=== PATIENT | male | born 2000 | race Caucasian/White ===

== ENCOUNTER 2023-04-30 20:06 | Emergency (ER) | payer OTHER, SELFPAY ==
[2023-04-30 20:13] VITALS: BP 118/68; PULSE 81; RESP 16; TEMP 37.2; O2SAT 98
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
[2023-04-30] MEDS: Ketorolac 15 MG/ML VIAL IM (20:42)
--- NOTE | 2023-04-30 21:38 | DI.VRAD_ITS ---
PROCEDURE INFORMATION: Exam: XR Right Shoulder Exam date and time: 04/30/2023 8:55 PM Age: 23 years old Clinical indication: Injury or trauma; Fall; Blunt trauma (contusions or hematomas); Shoulder; Right TECHNIQUE: Imaging protocol: Radiologic exam of the right shoulder. Views: 2 or more views. COMPARISON: No relevant prior studies available. FINDINGS: Bones/joints: There is some flattening and sclerosis to the lateral aspect of the humeral head which could represent an old Hill-Sachs deformity. However, clinical correlation with concern for acute injury in this region is recommended. No dislocation. There is a fracture of the shaft of the right clavicle with associated bony overlap and soft tissue swelling. On series 4, some curvilinear densities are seen adjacent to the distal/lateral clavicle, concerning for bony fragments. Soft tissues: See above. No unusual soft tissue calcifications. IMPRESSION: 1. Fracture of the shaft of the right clavicle as described above. 2. There is some flattening and sclerosis to the lateral aspect of the humeral head which could represent an old Hill-Sachs deformity. However, clinical correlation with concern for acute injury in this region is recommended. Other findings/details as above. If further characterization is clinically indicated, a CT scan could be considered. Dictated and Authenticated by: Ania Dozier MD. Ordering:FREDA Romero MD
--- NOTE | 2023-04-30 21:42 | DI.VRAD_ITS ---
PROCEDURE INFORMATION: Exam: XR Right Clavicle, Complete Exam date and time: 04/30/2023 8:57 PM Age: 23 years old Clinical indication: Injury or trauma; Fall; Blunt trauma (contusions or hematomas); Shoulder; Right; Injury date: Clavicle TECHNIQUE: Imaging protocol: Radiologic exam of the right clavicle. Complete exam. Views: Any number of views. COMPARISON: CR XR SHOULDER RT COMPLETE 2+V 04/30/2023 8:55 PM FINDINGS: Bones/joints: There is a fracture of the shaft of the right clavicle with associated displacement and bony overlap. On series 1, the inferior aspect of the lateral right clavicle is inferior to the inferior aspect of the acromion. An AC joint injury is not excluded. Soft tissues: On series 2, linear lucencies are identified in the right supraclavicular soft tissues. These may represent prominent fat stripes but should be correlated with concern for soft tissue gas, which could indicate an open fracture or serious soft tissue infection. Clinical correlation recommended. IMPRESSION: 1. Right clavicular fracture as described. It should be noted that the inferior aspect of the lateral right clavicle is inferior to the inferior aspect of the acromion. An AC joint injury is not excluded. 2. Linear lucencies in the right supraclavicular soft tissues. These may represent prominent fat stripes but should be correlated with any concern for soft tissue gas, which could indicate an open fracture or series soft tissue infection. Clinical correlation is recommended. Other findings/details as above. If indicated, a CT scan could be considered for further evaluation. Dictated and Authenticated by: Ania Dozier MD. Ordering:FREDA Romero MD
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
[2023-04-30 22:49] VITALS: BP 124/72; PULSE 80; RESP 20; O2SAT 96
== END 2023-04-30 22:52 | disposition home or self-care (01) ==
PROVIDERS: Emergency Provider Emergency Medicine
DX: S42.001A Fracture of unspecified part of right clavicle, initial encounter for closed fracture (principal); V18.0XXA Pedal cycle driver injured in noncollision transport accident in nontraffic accident, initial encounter
CPT/HCPCS: 96372; 99284; 73000; 73030; J1885